=== PATIENT | male | born 1990 ===

== ENCOUNTER 2022-05-28 21:11 | Observation (INO) ==
[2022-05-28] MEDS ORDERED: NS 0.9% 1000 ml BAG 1,000 ML IV ONE (21:36)
[2022-05-28] MEDS ORDERED: Ondansetron 4 mg VIAL 2 MG/ML 2 ml VIAL IV ONE (21:36)
[2022-05-28] MEDS ORDERED: Pantoprazole VIAL 40 MG VIAL IV ONE (22:15)
[2022-05-28 22:20] LABS: ABS Basophils 0.1 10^3/ul (0-0.2); ABS Lymphocytes 2.1 10^3/ul (1.0-4.8); ABS Monocytes 0.9 10^3/ul (0-0.8); ABS Neutrophils 9.2 10^3/ul (1.5-7.7); Eosinophil % 0.3 %; Hematocrit 45 % (42-52); Hemoglobin 15.2 g/dL (14.0-18.0); Lymphocyte % 17.2 %; Mean Corpuscular HGB Conc 34 g/dL (31-36); Mean Corpuscular Hemoglobin 28 pg (27-31); Mean Corpuscular Volume 82 fL (80-94); Mean Platelet Volume 7.8 fL (7.4-10.4); Platelet Count 284 10^3/uL (150-450); Red Cell Distribution Width 14 % (10-15); White Blood Count 12.4 10^3/uL (3.5-10.8)
[2022-05-28 22:21] LABS: Urine Appearance Clear; Urine Bilirubin Negative (Negative); Urine Blood Negative (Negative); Urine Color Amber; Urine Glucose Negative (Negative); Urine Ketones 1+ (Negative); Urine Nitrite Negative (Negative); Urine Protein 1+(30 mg/dL) (Negative); Urine Specific Gravity 1.028 (1.002-1.030); Urine Urobilinogen Positive (Negative)
[2022-05-28 22:22] LABS: Urine Bacteria Absent (Absent); Urine Red Blood Cell Trace(0-2/hpf) (Absent); Urine White Blood Cell Trace(0-5/hpf) (Absent)
[2022-05-28 22:28] LABS: INR 1.25 (0.89-1.11)
[2022-05-28 22:37] LABS: Urine Benzodiazepine Screen None Detected (None Detect); Urine Cannabinoids Screen Presumptive Positive (None Detect); Urine Opiates Screen None Detected (None Detect)
[2022-05-28 22:40] LABS: ALT 59 U/L (7-52); AST 47 U/L (13-39); Acetaminophen < 15 mcg/mL; Albumin 4.3 g/dL (3.2-5.2); Albumin/Globulin Ratio 1.7 (1-3); Alcohol, S < 13 mg/dL (<13); Alkaline Phosphatase 69 U/L (35-149); Anion Gap 13 mmol/L (2-11); Blood Urea Nitrogen 18 mg/dL (6-24); CO2 Carbon Dioxide 31 mmol/L (22-32); Calcium 9.4 mg/dL (8.6-10.3); Chloride 94 mmol/L (101-111); Globulin 2.6 g/dL (2-4); Glucose 108 mg/dL (70-100); Potassium 3.4 mmol/L (3.5-5.0); Salicylate < 2.50 mg/dL (<30); Sodium 138 mmol/L (135-145); Total Protein 6.9 g/dL (6.4-8.9); eGFR CKD-EPI 89.1 (>60)
[2022-05-28] MEDS ORDERED: Prochlorperazine 5 mg/ml 2 ml VIAL (10 mg) IV ONE (22:42)
[2022-05-28] MEDS ORDERED: Lorazepam PYXIS KEY PRN ×2 (22:42→23:07)
[2022-05-28] MEDS ORDERED: LORazepam 2 mg VIAL 1 ml IV PUSH ONE ×2 (22:42→23:07)
[2022-05-28 22:44] LABS: High Sens Troponin Baseline 5 pg/mL (<20)
[2022-05-28 22:52] LABS: TSH Ultra Thyroid Stim Horm 0.77 mcIU/mL (0.34-5.60)
[2022-05-28] MEDS ORDERED: Ziprasidone IM 20 mg VIAL 1 ml VIAL IM ONE (22:58)
[2022-05-28] MEDS ORDERED: Ziprasidone IM 20 mg VIAL 1 ml VIAL ONE (22:59)
[2022-05-28] MEDS ORDERED: Iodixanol (CONTRAST) 320 MG/ML 100 ML SDV IV ONE (23:22)
[2022-05-28] MEDS ORDERED: diazePAM INJ CARPUJECT 5 MG/ML SYRINGE IV ONE (23:47)
[2022-05-29 06:34] LABS: High Sensitivity Troponin 1 Hr 7 pg/mL (<20)
[2022-05-29] MEDS ORDERED: Dextrose 50% Syringe 50 ml 25 GM/50 ML SYRINGE IV PUSH PRN (08:23)
[2022-05-29] MEDS: KCL 20 MEQ/100 ML IVPREMIX 20 MEQ/100 ML BAG IV SCH ×2 (09:08→12:38)
[2022-05-29] MEDS: NS 0.9% 1000 ml BAG 1,000 ML IV SCH (12:38)
[2022-05-29] MEDS ORDERED: Pantoprazole VIAL 40 MG VIAL IV SCH (14:00)
[2022-05-29 14:15] LABS: Hematocrit 44 % (42-52); Hemoglobin 14.7 g/dL (14.0-18.0)
[2022-05-29] MEDS: Ondansetron 4 mg VIAL 2 MG/ML 2 ml VIAL IV PRN ×2 (15:56→20:37)
[2022-05-29 16:07] LABS: Hematocrit 42 % (42-52); Hemoglobin 14.3 g/dL (14.0-18.0); Mean Corpuscular HGB Conc 34 g/dL (31-36); Mean Corpuscular Hemoglobin 27 pg (27-31); Mean Corpuscular Volume 82 fL (80-94); Mean Platelet Volume 7.6 fL (7.4-10.4); Platelet Count 247 10^3/uL (150-450); Red Cell Distribution Width 14 % (10-15)
[2022-05-29 16:54] LABS: Calcium 8.5 mg/dL (8.6-10.3); Potassium 3.8 mmol/L (3.5-5.0); eGFR CKD-EPI 108.4 (>60)
[2022-05-29] MEDS ORDERED: Ondansetron 4 mg VIAL 2 MG/ML 2 ml VIAL IV ONE (20:12)
[2022-05-29] MEDS ORDERED: Mineral Oil ENEMA 118 ML/BOTTLE BOTTLE PR ONE (20:47)
[2022-05-29] MEDS: Lidocaine PATCH 5% PATCH TRANSDERM SCH (22:59)
[2022-05-30] MEDS: NS 0.9% 1000 ml BAG 1,000 ML IV SCH (03:28)
[2022-05-30 06:43] LABS: Hematocrit 40 % (42-52); Hemoglobin 13.8 g/dL (14.0-18.0); Mean Corpuscular HGB Conc 34 g/dL (31-36); Mean Corpuscular Hemoglobin 28 pg (27-31); Mean Corpuscular Volume 82 fL (80-94); Mean Platelet Volume 7.9 fL (7.4-10.4); Platelet Count 216 10^3/uL (150-450); Red Blood Count 4.93 10^6 /uL (4.18-5.48); Red Cell Distribution Width 14 % (10-15); White Blood Count 10.6 10^3/uL (3.5-10.8)
[2022-05-30] MEDS: Pantoprazole VIAL 40 MG VIAL IV SCH (08:01)
[2022-05-30] MEDS: Lidocaine PATCH 5% PATCH TRANSDERM SCH (10:47)
[2022-05-30] MEDS: Ondansetron 4 mg VIAL 2 MG/ML 2 ml VIAL IV PRN (10:53)
[2022-05-31] MEDS ORDERED: Ondansetron ODT 4 mg TAB 4 MG TAB PO PRN (09:57)
[2022-05-31] MEDS: Lidocaine PATCH 5% PATCH TRANSDERM SCH (10:18)
[2022-05-31] MEDS: Pantoprazole VIAL 40 MG VIAL IV SCH (10:20)
[2022-05-31 15:05] VITALS: BP 110/60
== END 2022-05-31 15:22 | disposition home or self-care (01) ==
LOC: EDHOLD 21:11 → ED 21:11 → SUATTDRO 05-29 08:19 → EDHOLD 05-29 09:34 → MED 05-29 10:13
PROVIDERS: ADMIT Hospitalist; ATTEND Internal Medicine